=== PATIENT | female | born 2000 | race Hispanic/Latino ===

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

== ENCOUNTER 2022-10-27 12:03 | Emergency (ER) | payer BC ==
[2022-10-27 12:53] LABS: Specific Gravity 1.027 (1.005-1.030); Urine Bacteria <20 /HPF (<20); Urine Bilirubin NEGATIVE (Negative); Urine Blood Negative (Negative); Urine Clarity Clear (Clear); Urine Color Yellow (Yellow); Urine Glucose NEGATIVE (Negative); Urine Mucus 3+ /HPF (None Seen); Urine Protein TRACE (Negative); Urine RBC <5 /HPF (None Seen); Urine Urobilinogen Normal (Normal); Urine pH 6.5 (5.0-7.0)
[2022-10-27 12:54] LABS: Specific Gravity 1.027 (1.005-1.030)
[2022-10-27 13:43] LABS: Absolute Lymphocytes (CBC) 2.2 K/uL (0.7-4.9); Hematocrit 42.1 % (36.0-45.0); Lymphocytes % 36.2 % (15.3-44.8); MCV 84.5 fL (80-100); MPV 9.2 fL (7.6-11.3); RBC Red Blood Cell Count 4.98 M/uL (3.86-4.86)
--- NOTE | 2022-10-27 13:45 | RAD REPORT ---
EXAM DESCRIPTION: CT - Abdomen Pelvis W Contrast - 10/27/2022 1:22 pm CLINICAL HISTORY: Abdominal pain COMPARISON: none. TECHNIQUE: Computed axial tomography of the abdomen pelvis was obtained. 100 cc Isovue-300 was admin istered intravenously. Oral contrast was not requested which limits evaluation of bowel and appendix All CT scans are performed using dose optimization technique as appropriate and may include automated exposure control or mA/KV adjustment according to patient size. FINDINGS: The liver, spleen, pancreas, adrenal and kidneys appear unremarkable. There is no evidence of diverticulitis. No adnexal mass. Small to moderate amount of free fluid in the pelvis. IMPRESSION: Small to moderate amount of free fluid within the pelvis. This may be secondary to infla mmation or previously ruptured small ovarian cyst.
[2022-10-27 13:51] LABS: Albumin 3.8 g/dL (3.4-5.0); Bilirubin Total 0.4 mg/dL (0.2-1.0); Potassium 3.9 mEq/L (3.5-5.1); Protein, Total 7.4 g/dL (6.4-8.2)
[2022-10-27] MEDS ORDERED: KETOROLAC 30 MG/ML INJ ONE (14:37)
--- NOTE | 2022-10-27 15:41 | RAD REPORT ---
EXAM DESCRIPTION: US - Transvaginal Study Probe - 10/27/2022 3:22 pm CLINICAL HISTORY: Pelvic pain COMPARISON: CT same date FINDINGS: The uterus measures 7 x 3 x 7 cm. A fibroid is not seen. The endometrial stripe measures 2 millimeters The ovaries are normal in size and echotexture. Each ovary contains many follicles The right and left adnexa unremarkable Small to moderate amount of free fluid within the pelvis IMPRESSION: Each ovary contains many follicles. This can be seen with polycystic ovarian syndrome an d should be correlated clinically Small to moderate amount of free fluid may indicate inflammation
[2022-10-27 18:02] VITALS: O2SAT 100
[2022-10-27 18:04] VITALS: TEMP 99
[2022-10-27 18:07] VITALS: BP 107/60
--- NOTE | 2022-10-27 19:00 | ER ---
Nurse's Notes [facility] Name: Nhung Benton Age: 21 yrs Sex: Female : 2000 Arrival Date: 10/27/2022 Time: 12:12 Bed 18 Private MD: Diagnosis: Other ovarian cysts Presentation: 10/27 12:28 Chief complaint: Worsening left sided abdominal pain x 3 days. Denies N/V/D/urinary jl7 s/s. Coronavirus screen: At this time, the client does not indicate any symptoms associated with coronavirus-19. Ebola Screen: No symptoms or risks identified at this time. Initial Sepsis Screen: Does the patient meet any 2 criteria? No. Patient's initial sepsis screen is negative. Does the patient have a suspected source of infection? No. Patient's initial sepsis screen is negative. Risk Assessment: Do you want to hurt yourself or someone else? Patient reports no desire to harm self or others. Onset of symptoms was October 25, 2022. 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 - Social history:: Smoking status: unknown. Screenin:29 [facility] ED Fall Risk Assessment (Adult) History of falling in the last 3 months, kr3 including since admission No falls in past 3 months (0 pts) Confusion or Disorientation No (0 pts) Intoxicated or Sedated No (0 pts) Impaired Gait No (0 pts) Mobility Assist Device Used No (0 pt) Altered Elimination No (0 pt) Score/Fall Risk Level 0 - 2 = Low Risk Oriented to surroundings, Maintained a safe environment, Educated pt \T\ family on fall prevention, incl call for assistance when getting out of bed, Assessed \T\ reinforced patient's understanding of fall precautions, Hourly rounding (assess needs \T\ fall precautionary measures) done. Abuse screen: Denies threats or abuse. Nutritional screening: No deficits noted. Tuberculosis screening: No symptoms or risk factors identified. Assessment: 14:27 General: Appears in no apparent distress. uncomfortable, Behavior is calm, cooperative, kr3 appropriate for age. Pain: Complains of pain in abdomen. Neuro: Level of Consciousness is awake, alert, obeys commands, Oriented to person, place, time, situation. Cardiovascular: Patient's skin is warm and dry. Respiratory: Airway is patent Respiratory effort is even, unlabored, Respiratory pattern is regular, symmetrical. GI: Abdomen is round non-distended. : No signs and/or symptoms were reported regarding the genitourinary system. EENT: No signs and/or symptoms were reported regarding the EENT system. Derm: No signs and/or symptoms reported regarding the dermatologic system. Musculoskeletal: No signs and/or symptoms reported regarding the musculoskeletal system. 15:40 Reassessment: Patient appears in no apparent distress at this time. Patient and/or kr3 family updated on plan of care and expected duration. Pain level reassessed. Patient is alert, oriented x 3, equal unlabored respirations, skin warm/dry/pink. 16:43 Reassessment: Patient appears in no apparent distress at this time. Patient and/or kr3 family updated on plan of care and expected duration. Pain level reassessed. Patient is alert, oriented x 3, equal unlabored respirations, skin warm/dry/pink. 17:27 Reassessment: Patient appears in no apparent distress at this time. Patient and/or kr3 family updated on plan of care and expected duration. Pain level reassessed. Patient is alert, oriented x 3, equal unlabored respirations, skin warm/dry/pink. Vital Signs: 12:30 BP 146 / 90; Pulse 73; Resp 16; Temp 99(TE); Pulse Ox 100% on R/A; Weight 78.93 kg; jl7 Height 5 ft. 6 in. ; Pain 8/10; 15:46 BP 121 / 69; Pulse 58; Resp 18; Pulse Ox 100% on R/A; kr3 16:43 BP 110 / 53; Pulse 53; Resp 18; Pulse Ox 100% on R/A; kr3 17:27 BP 107 / 60; Pulse 53; Resp 18; Pulse Ox 100% on R/A; kr3 12:30 Body Mass Index 28.08 (78.93 kg, 167.64 cm) 7 12:30 Pain Scale: Adult jl7 ED Course: 12:12 Patient arrived in ED. rg4 12:22 Vahe Garcia MD is Attending Physician. rt 12:29 Triage completed. jl7 12:33 Arm band placed on. jl7 12:43 Urine W/Microscopic (UAM) Sent. bc6 12:43 PREGU Sent. bc6 13:15 Bed in low position. Call light in reach. Side rails up X 1. kr3 13:22 CT completed. Patient tolerated procedure well. Note: 22 g to lt ac , labs drawn and sj sent by me.. Patient moved to CT via wheelchair. Patient moved back from CT. 13:24 CT Abd/Pelvis - IV Contrast Only In Process Unspecified. EDMS 14:27 Elba Lopez, RN is Primary Nurse. kr3 15:23 Transvaginal Study Probe In Process Unspecified. EDMS 17:29 No provider procedures requiring assistance completed. IV discontinued, intact, kr3 bleeding controlled, No redness/swelling at site. Pressure dressing applied. Administered Medications: 14:38 Drug: Ketorolac IVP 30 mg Route: IVP; Site: left antecubital; kr3 17:32 Follow up: Response: No adverse reaction kr3 Medication: 17:31 VIS not applicable for this client. kr3 Outcome: 17:00 Discharge ordered by . rt 17:30 Discharged to home ambulatory. kr3 17:30 Condition: stable 17:30 Discharge instructions given to patient, Instructed on discharge instructions, follow up and referral plans. medication usage, Demonstrated understanding of instructions, follow-up care, medications, Prescriptions given X 1. 17:31 Patient left the ED. kr3 Signatures: Dispatcher [employer] EDMS Kaya Schneider Rubi rg4 Fede Katz RN RN jl7 Elba Lopez, JIMENA RN kr3 Vahe Garcia MD MD rt Hallie Goldman [facility]
--- NOTE | 2022-10-27 19:00 | EDPHYS ---
Physician Documentation [facility] Name: Nhung Benton Age: 21 yrs Sex: Female : 2000 Arrival Date: 10/27/2022 Time: 12:12 Bed 18 Private MD: ED Physician Vahe Garcia HPI: 10/27 14:27 This 21 yrs old Female presents to ER via Ambulatory with complaints of rt Abdominal Pain. 14:27 Patient presents to the ED with a left lower quadrant abdominal pain that radiates rt sporadically over the past 3 days. It comes and goes. Is worse when she stands up and moves around. She denies other aggravating or alleviating factors. The patient denies any nausea, vomiting, vaginal bleeding, discharge, dysuria. Her last menstrual period ended about 3 days ago. She denies other acute complaints at this time, symptoms are moderate severity, no other aggravating elevating factors.. 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 - Social history:: Smoking status: unknown. ROS: 14:27 Constitutional: Negative for fever, chills, and weight loss, Cardiovascular: Negative rt for chest pain, palpitations, and edema, Respiratory: Negative for shortness of breath, cough, wheezing, and pleuritic chest pain, MS/Extremity: Negative for injury and deformity, Skin: Negative for injury, rash, and discoloration, Neuro: Negative for headache, weakness, numbness, tingling, and seizure, Psych: Negative for depression, anxiety, suicide ideation, homicidal ideation, and hallucinations. 14:27 Abdomen/GI: Positive for abdominal pain, Negative for nausea, vomiting, and diarrhea. Exam: 14:27 Constitutional: This is a well developed, well nourished patient who is awake, alert, rt and in no acute distress. Head/Face: Normocephalic, atraumatic. Chest/axilla: Normal chest wall appearance and motion. Nontender with no deformity. No lesions are appreciated. Cardiovascular: Regular rate and rhythm with a normal S1 and S2. No gallops, murmurs, or rubs. Normal PMI, no JVD. No pulse deficits. Respiratory: Lungs have equal breath sounds bilaterally, clear to auscultation and percussion. No rales, rhonchi or wheezes noted. No increased work of breathing, no retractions or nasal flaring. Skin: Warm, dry with normal turgor. Normal color with no rashes, no lesions, and no evidence of cellulitis. MS/ Extremity: Pulses equal, no cyanosis. Neurovascular intact. Full, normal range of motion. Neuro: Awake and alert, GCS 15, oriented to person, place, time, and situation. Cranial nerves II-XII grossly intact. Motor strength 5/5 in all extremities. Sensory grossly intact. Cerebellar exam normal. Normal gait. Psych: Awake, alert, with orientation to person, place and time. Behavior, mood, and affect are within normal limits. 14:27 Abdomen/GI: Tenderness to the left lower quadrant without rebound, guarding, distention. Vital Signs: 12:30 BP 146 / 90; Pulse 73; Resp 16; Temp 99(TE); Pulse Ox 100% on R/A; Weight 78.93 kg; jl7 Height 5 ft. 6 in. ; Pain 8/10; 15:46 BP 121 / 69; Pulse 58; Resp 18; Pulse Ox 100% on R/A; kr3 16:43 BP 110 / 53; Pulse 53; Resp 18; Pulse Ox 100% on R/A; kr3 17:27 BP 107 / 60; Pulse 53; Resp 18; Pulse Ox 100% on R/A; kr3 12:30 Body Mass Index 28.08 (78.93 kg, 167.64 cm) 7 12:30 Pain Scale: Adult jl7 MDM: 12:33 Patient medically screened. rt 17:04 Differential diagnosis: Ectopic , UTI, pyelonephritis, diverticulitis, bowel rt obstruction, ovarian torsion, ovarian cyst. Data reviewed: vital signs, nurses notes, lab test result(s), radiologic studies. Consideration of Admission/Observation Escalation of care including admission/observation considered. I considered the following discharge prescriptions or medication management in the emergency department Medications were administered in the Emergency Department. See MAR. Independent interpretation of the following test(s) in the Emergency Department CT Scan: My interpretation is No obstruction, nephrolithiasis seen on interpretation of the CT scan and. Historians other than the Patient: Parent: Discussed history with patient's mother. Counseling: I had a detailed discussion with the patient and/or guardian regarding: the historical points, exam findings, and any diagnostic results supporting the discharge/admit diagnosis, lab results, the need for outpatient follow up. Response to treatment: the patient's symptoms have markedly improved after treatment. 10/27 12:34 Order name: CBC with Diff; Complete Time: 13:53 rt 10/27 12:34 Order name: CMP; Complete Time: 13:53 rt 10/27 12:34 Order name: Urine W/Microscopic (UAM); Complete Time: 13:49 rt 10/27 12:34 Order name: PREGU; Complete Time: 13:49 rt 10/27 12:34 Order name: Lipase; Complete Time: 13:53 rt 10/27 12:34 Order name: CT Abd/Pelvis - IV Contrast Only; Complete Time: 13:49 rt 10/27 15:23 Order name: Transvaginal Study Probe EDMS Administered Medications: 14:38 Drug: Ketorolac IVP 30 mg Route: IVP; Site: left antecubital; kr3 17:32 Follow up: Response: No adverse reaction kr3 Disposition Summary: 10/27/22 17:00 Discharge Ordered Location: Home rt Problem: new rt Symptoms: have improved rt Condition: Stable rt Diagnosis - Other ovarian cysts rt Followup: rt - With: Private Physician - When: 2 - 3 days - Reason: Discharge Instructions: - Discharge Summary Sheet rt - Ovarian Cyst rt - Polycystic Ovary Syndrome rt Forms: - Work release form kr3 - Medication Reconciliation Form rt - Thank You Letter rt - Antibiotic Education rt - Prescription Opioid Use rt Prescriptions: - ketorolac 10 mg Oral tablet - take 1 tablet by ORAL route every 4 hours for 4 days while awake; do not exceed rt 4 doses per day; 12 tablet; Refills: 0, Product Selection Permitted Signatures: Dispatcher [employer] EDMS Fede Katz RN RN jl7 Elba Lopez RN RN kr3 Vahe Garcia MD MD rt Corrections: (The following items were deleted from the chart) 15:23 14:39 Pelvis Complete+US.RAD.BRZ ordered. EDMS EDMS
== END 2022-10-27 17:31 | disposition home or self-care (01) ==
LOC: ER 12:03
DX: N83.292 Other ovarian cyst, left side (principal); Z88.1 Allergy status to other antibiotic agents
CPT/HCPCS: 85025; 81001; 36415; 81025; 83690; 80053; 74177; 76830; 96374; 99284; Q9967